=== PATIENT | male | born 1985 | race African-American/Black ===

== ENCOUNTER 2018-04-14 23:57 | Emergency (ER) | payer OTHER ==
[2018-04-15 00:17] VITALS: BP 140/96
[2018-04-15] MEDS ORDERED: TYLENOL ONE (00:19)
[2018-04-15] MEDS ORDERED: TYLENOL PO ONE (00:20)
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
== END 2018-04-15 08:21 | disposition home or self-care (01) ==
LOC: ED 23:57
DX: S86.911A Strain of unspecified muscle(s) and tendon(s) at lower leg level, right leg, initial encounter (principal); F17.200 Nicotine dependence, unspecified, uncomplicated; V49.49XA Driver injured in collision with other motor vehicles in traffic accident, initial encounter; Y93.89 Activity, other specified; Y92.89 Other specified places as the place of occurrence of the external cause; Y99.8 Other external cause status
CPT/HCPCS: 99283